=== PATIENT | male | born 1985 | race African-American/Black ===

== ENCOUNTER 2021-11-19 13:49 | Emergency (ER) | payer MEDICAID ==
[2021-11-19] MEDS ORDERED: methylPREDNISolone Sodium Succinate 125 MG/2 ML SDV IM ONE (15:03)
[2021-11-19] MEDS ORDERED: HYDROmorphone 1 MG/ML Syringe IM ONE (15:03)
== END 2021-11-19 16:30 | disposition home or self-care (01) ==
LOC: MW.ED 13:49
DX: N39.0 Urinary tract infection, site not specified (principal); M54.42 Lumbago with sciatica, left side; F17.210 Nicotine dependence, cigarettes, uncomplicated
CPT/HCPCS: 72131; 81001; 87086; 96372; 99284; J1170; J2930; 99283

== ENCOUNTER 2022-03-11 17:24 | Observation (INO) | payer MEDICAID ==
[2022-03-11 19:28] LABS: ACETAMINOPHEN <2.0 ug/mL; BLOOD UREA NITROGEN,BUN 7 mg/dL (7.0-18.0); CARBON DIOXIDE,CO2 26.7 mmol/L (21.0-32.0); CHLORIDE,CL 106 mmol/L (98-107); GLUCOSE RANDOM 113 mg/dL (74-106); POTASSIUM,K 3.3 mmol/L (3.5-5.1); SODIUM,NA 142 mmol/L (136-148)
[2022-03-11 19:29] LABS: ESTIMATED GFR 88 mL/min (>60)
[2022-03-11] MEDS ORDERED: Sodium Chloride 0.9% 1,000 ML IV ONE ×3 (19:40→22:59)
[2022-03-11] MEDS ORDERED: Calcium Gluconate 10% 1 GM/10 ML SDV IVPUSH ONE (20:13)
[2022-03-12] MEDS ORDERED: Potassium Chloride 20 MEQ Tab.ER PO ONE (01:34)
[2022-03-12 05:59] LABS: CARBON DIOXIDE,CO2 29.1 mmol/L (21.0-32.0); POTASSIUM,K 4.4 mmol/L (3.5-5.1)
[2022-03-12] MEDS ORDERED: QUEtiapine 25 MG Tab PO ONE (12:45)
[2022-03-12] MEDS ORDERED: Venlafaxine 37.5 MG Tab PO SCH (13:00)
[2022-03-12] MEDS ORDERED: Venlafaxine 75 MG Cap.ER PO SCH (13:00)
[2022-03-12] MEDS ORDERED: QUEtiapine 100 MG Tab PO SCH (21:00)
== END 2022-03-12 15:00 ==
LOC: MW.ED 17:24 → MW.MS 23:43
PROVIDERS: ADMIT Internal Medicine; ATTEND Internal Medicine
DX: R45.851 Suicidal ideations (principal); F17.210 Nicotine dependence, cigarettes, uncomplicated; I95.9 Hypotension, unspecified; F32.3 Major depressive disorder, single episode, severe with psychotic features; F29 Unspecified psychosis not due to a substance or known physiological condition; Z91.018 Allergy to other foods; Z79.899 Other long term (current) drug therapy; Z20.822 Contact with and (suspected) exposure to COVID-19
CPT/HCPCS: 36415; 80048; 80053; 80143; 80179; 80305; 80307; 81001; 83735; 84439; 84443; 84481; 85025; 87635; 93005; 96361; 96374; 99285; A9270; G0378; J0610; J7030; 93010; U0002